=== PATIENT | female | born 1950 | race Caucasian/White ===

== ENCOUNTER 2023-11-25 05:13 | Observation (INO) ==
--- NOTE | 2023-10-31 12:18 | PAT Medication Instructions ---
Medication Instructions Date of Service October 31, 2023 Home Medications acetaminophen 325 mg tablet (Tylenol) 325 mg PO PRN PRN Pain meclizine 25 mg tablet 25 mg PO TID PRN Vertigo psyllium husk 0.52 gram capsule (Metamucil) 0.52 g PO QAM Calcium + D3 1,200 mg PO BID Turmeric Spice 0.5 tbsp PO DAILY Vitamin B12 Chewable 5,000 mcg PO QAM famotidine 40 mg tablet 40 mg PO QAM ibuprofen 200 mg tablet 200 mg PO Q6H PRN Pain lisinopril 2.5 mg tablet 2.5 mg PO QAM ondansetron HCl 4 mg tablet 4 mg PO DAILY PRN Nausea polyethylene glycol 3350 17 gram/dose oral powder (Miralax) 17 g PO QAM rosuvastatin 5 mg tablet 5 mg PO QPM MEDICATION INSTRUCTIONS: ASK your surgeon for instructions ibuprofen 200 mg tablet 200 mg PO Q6H PRN Pain STOP taking 2 weeks before surgery Turmeric Spice 0.5 tbsp PO DAILY DO NOT take the morning of surgery polyethylene glycol 3350 17 gram/dose oral powder (Miralax) 17 g PO QAM lisinopril 2.5 mg tablet 2.5 mg PO QAM psyllium husk 0.52 gram capsule (Metamucil) 0.52 g PO QAM Vitamin B12 Chewable 5,000 mcg PO QAM Calcium + D3 1,200 mg PO BID Take morning of surgery With a small sip of water, OTHERWISE NOTHING TO EAT OR DRINK AFTER MIDNIGHT: acetaminophen 325 mg tablet (Tylenol) 325 mg PO PRN PRN Pain meclizine 25 mg tablet 25 mg PO TID PRN Vertigo ondansetron HCl 4 mg tablet 4 mg PO DAILY PRN Nausea famotidine 40 mg tablet 40 mg PO QAM Take evening before surgery acetaminophen 325 mg tablet (Tylenol) 325 mg PO PRN PRN Pain meclizine 25 mg tablet 25 mg PO TID PRN Vertigo Calcium + D3 1,200 mg PO BID ondansetron HCl 4 mg tablet 4 mg PO DAILY PRN Nausea rosuvastatin 5 mg tablet 5 mg PO QPM Other Notes If you have any questions please call us at [phone] or [phone] or [phone] or [phone]
--- NOTE | 2023-11-07 09:46 | Anesthesiology Consultation ---
Date of Service November 07, 2023 Assessment & Plan (1) Encounter for pre-operative examination: - will request most recent PCP office note, Dr. Katja Gant, since 04/2023 ER visit. - Outpatient joint assessment: Patient is currently scheduled for inpatient pathway. If re-evaluated and patient/surgeon requests outpatient pathway, patient is not candidate for outpatient joint program from anesthesia standpoint. Chart Review Chart Review: Pending: Refer to Additional Notes / Consult section and Patient seen in Pre Admission Testing Teaching & Discussion Pre-Anesthesia Teaching/Discussion Notes: Instructed NPO after midnight before surgery, except medications with 15 cc of water. Medication instructions provided according to the PAT guidelines. History Surgery Operation Date: 11/25/23 10:40 Proposed Procedures p Left Unicompartmental Knee versus - Eliazar Adasm MD s Total Knee Arthroplasty - Eliazar Adams MD Height/Weight Height: 5 ft 3.5 in Weight: 55.2 kg Allergies Allergy/AdvReac Type Severity Reaction Status Date / Time atorvastatin AdvReac Severe Hyperventil Verified 10/26/23 12:45 ation/Mart ng/Anxious prednisone AdvReac Intermediate Insomnia/An Verified 10/26/23 12:45 xious/Mart ng Medications Home Medications Medication Instructions Recorded Confirmed Last Taken acetaminophen 325 mg tablet 325 mg PO PRN PRN Pain 06/11/20 10/26/23 Unknown (Tylenol) meclizine 25 mg tablet 25 mg PO TID PRN Vertigo 06/11/20 10/26/23 Unknown psyllium husk 0.52 gram capsule 0.52 g PO QAM 06/11/20 10/26/23 Unknown (Metamucil) Calcium + D3 1,200 mg PO BID 10/26/23 10/26/23 Unknown Turmeric Spice 0.5 tbsp PO DAILY 10/26/23 10/26/23 Unknown Vitamin B12 Chewable 5,000 mcg PO QAM 10/26/23 10/26/23 Unknown famotidine 40 mg tablet 40 mg PO QAM 10/26/23 10/26/23 Unknown ibuprofen 200 mg tablet 200 mg PO Q6H PRN Pain 10/26/23 10/26/23 Unknown lisinopril 2.5 mg tablet 2.5 mg PO QAM 10/26/23 10/26/23 Unknown ondansetron HCl 4 mg tablet 4 mg PO DAILY PRN Nausea 10/26/23 10/26/23 Unknown polyethylene glycol 3350 17 17 g PO QAM 10/26/23 10/26/23 Unknown gram/dose oral powder (Miralax) rosuvastatin 5 mg tablet 5 mg PO QPM 10/26/23 10/26/23 Unknown Past Medical History Medical History (Updated 11/07/23 @ 10:00 by Elena Jacinto PA-C) Arthritis GERD (gastroesophageal reflux disease) controlled, stable per pt Gout History of anemia History of COVID-19 2021 - no hospitalizations - no residual effects History of diverticulitis "years ago" HTN (hypertension) controlled, stable per pt Hyperlipidemia Hypothyroidism "When I first got surgery I was on medication but they took me off of it" IBS (irritable bowel syndrome) Osteopenia PONV (postoperative nausea and vomiting) Renal insufficiency Thyroid goiter Thyroid nodule Surgically Removed Torn meniscus with fracture - Left - No surgery Vertigo chronic, has meclizine prn Patient denies h/o stroke, seizures, heart attack, heart failure, DM, blood clots/DVTs or blood transfusions. Exercise / Class Metabolic Activity II 4-5 Yardwork/Stairs/Walk up hill (denies chest discomfort or shortness of breath with one flight of stairs) Past Family History Family History Daughter Thyroid disease Adrenal insufficiency Aunt Breast cancer Grandmother (Maternal) Congestive heart failure Grandfather (Maternal) Esophageal cancer Sister Migraines Mother Osteoarthritis Hypertension History of breast biopsy Father Hypertension Alcoholism COPD (chronic obstructive pulmonary disease) Past Surgical History Surgical History History of bilateral tubal ligation in 1982 History of colonoscopy 06/2023 History of dilation and curettage Multiple History of hysterectomy 2009 History of thyroid surgery "removed the right side of thyroid due to a nodule" 04/2012 Hx of cataract surgery Bilateral Hx of colonoscopy Hx of esophagogastroduodenoscopy Past Anesthesia History No Hx of Anesthesia Complications and No Family Hx of Anesthesia Complications History of PONV History of PONV (denies needing scop patch) and Hx of Motion Sickness Social History Smoking Status: Never smoker Do You Dip or Chew Tobacco: No Hx Alcohol Use: Yes Alcohol type: wine alcohol intake frequency: a few times a month Hx Substance Use: No substance use type: does not use Review of Systems Patient denies chest pain, shortness of breath, dyspnea on exertion, snoring, witnessed apneas, fever, chills, cough, wheezing, or palpitations. Physical Exam Vital Signs Vitals BP 106/70 P 75 TEMP 98.0 SP02 94% on RA RESP 18 Physical Patient resting comfortably in chair in no acute distress, alert and oriented, responding appropriately throughout visit Full cervical extension range of motion without pain TMD 3.5 finger breadths Mallampati Score 2 Dentition: full upper denture, denies chipped or loose teeth, caps/crowns, implants or bridges Lungs: normal respiratory effort. Good air movement, clear throughout to auscultation, no adventitious breath sounds Cardiac: regular rate and rhythm, no murmurs noted Carotid arteries: negative bruit bilat Lab Results Anesthesia Preop Results Results Anesthesia Widget: WBC 5.10 K/ul (4.8-10.8) 11/07/23 Hgb 13.6 g/dl (12.0-16.0) 11/07/23 Hct 40.0 % (37.0-47.0) 11/07/23 Plt 269 K/uL (130-400) 11/07/23 Na 141 mmol/L (136-145) 11/07/23 K 4.2 mmol/L (3.5-5.1) 11/07/23 Cl 107 mmol/L (98-107) 11/07/23 CO2 29 mmol/L (21-32) 11/07/23 BUN 16 mg/dl (6-23) 11/07/23 Creat 1.02 mg/dl (0.6-1.2) 11/07/23 Glucose Level 71 mg/dl (70-99(Fasting)) 11/07/23 PT 10.4 Seconds (9.0-12.0) 11/07/23 PTT 27 Seconds (21-31) 11/07/23 INR 1.0 (0.9-1.1) 11/07/23 Blood Type O Positive 11/07/23 Antibody Screen NEGATIVE 11/07/23 Testing Electrocardiogram Date: 04/22/23 Sinus rhythm with 1st degree AV block, rate 87 bpm Incomplete RBBB Chest X-Ray Date: 11/07/23 No acute cardiopulmonary findings. Echocardiogram Date: 05/29/20 EF 60-65% No LV regional wall motion abnormalities No significant valvular pathology Stress Test Date: 07/17/20 Suggesting inducible ischemia in the anterolateral wall at peak exertion METS 10 MPHR 108% Other Testing Head and neck CTA 04/22/23 1. No hemodynamically significant carotid stenosis. 2. Bilateral vertebral arteries are patent along their cervical course without evidence of occlusion or dissection. 1. No large vessel intracranial occlusion. 2. No intracranial aneurysm.
--- NOTE | 2023-11-19 11:17 | History & Physical Report ---
Date of Service November 19, 2023 Assessment & Plan (1) Left knee DJD: 73-year-old female with advanced medial compartment arthritis. She has failed conservative measures. She is ready have her knee fixed. Based on her symptoms and x-rays I think she is a good candidate for a partial knee replacement. Plan: [facility] to take her to the operating do a left partial knee replacement. If we get in there and the disease is too bad we will do a full knee replacement. The risks Mente this procedure explained include but not limited to a DVT PE infection neurological injury vascular bleeding palm pain limb range of motion sepsis dislocation and need for further surgery. The patient understands and desires to proceed. Informed consent was obtained. As far as discharge plan she is planned to be discharged to home with home health. Her is available to assist. Will use aspirin for DVT pr ophylaxis. She will need to hold lisinopril the morning of surgery. (2) Hyperlipidemia: (3) History of thyroid surgery: (4) Bursitis of right hip: History of Present Illness Chief Complaint: . Persistent left medial knee pain and discomfort Primary Care Provider: Katja Gant MD . The patient is a 73-year-old female have been following for the past 2 years for her left medial knee pain discomfort along with some hip bursitis. She been through extensive conservative treatment which would become less successful over time. Scribes mostly all medial knee pain. She had treatment by Dr. Jerry initially at and then by myself. She now like to proceed with surgical treatment/knee arthroplasty. Allergies Allergy/AdvReac Type Severity Reaction Status Date / Time atorvastatin AdvReac Severe Hyperventil Verified 10/26/23 12:45 ation/Mart ng/Anxious prednisone AdvReac Intermediate Insomnia/An Verified 10/26/23 12:45 xious/Mart alegria Home Medications Medication Instructions Recorded Confirmed Type acetaminophen 325 mg tablet 325 mg PO PRN PRN Pain 06/11/20 10/26/23 History (Tylenol) meclizine 25 mg tablet 25 mg PO TID PRN Vertigo 06/11/20 10/26/23 History psyllium husk 0.52 gram capsule 0.52 g PO QAM 06/11/20 10/26/23 History (Metamucil) Calcium + D3 1,200 mg PO BID 10/26/23 10/26/23 History Turmeric Spice 0.5 tbsp PO DAILY 10/26/23 10/26/23 History Vitamin B12 Chewable 5,000 mcg PO QAM 10/26/23 10/26/23 History famotidine 40 mg tablet 40 mg PO QAM 10/26/23 10/26/23 History ibuprofen 200 mg tablet 200 mg PO Q6H PRN Pain 10/26/23 10/26/23 History lisinopril 2.5 mg tablet 2.5 mg PO QAM 10/26/23 10/26/23 History ondansetron HCl 4 mg tablet 4 mg PO DAILY PRN Nausea 10/26/23 10/26/23 History polyethylene glycol 3350 17 17 g PO QAM 10/26/23 10/26/23 History gram/dose oral powder (Miralax) rosuvastatin 5 mg tablet 5 mg PO QPM 10/26/23 10/26/23 History Past Med/Surg History Problem List Encounter for pre-operative examination Bursitis of right hip 02/01/22 Right hip pain Left knee DJD Hypertension Hyperlipidemia Palpitations 06/17/20 Medical History History of diverticulitis "years ago" PONV (postoperative nausea and vomiting) Arthritis IBS (irritable bowel syndrome) History of anemia History of COVID-2021 - no hospitalizations - no residual effects HTN (hypertension) controlled, stable per pt Vertigo chronic, has meclizine prn Torn meniscus with fracture - Left - No surgery Hypothyroidism "When I first got surgery I was on medication but they took me off of it" Gout GERD (gastroesophageal reflux disease) controlled, stable per pt Thyroid nodule Surgically Removed Thyroid goiter Osteopenia Renal insufficiency Hyperlipidemia Surgical History Hx of esophagogastroduodenoscopy Hx of colonoscopy Hx of cataract surgery Bilateral History of thyroid surgery "removed the right side of thyroid due to a nodule" 04/2012 History of hysterectomy 2008 History of colonoscopy 06/2023 History of dilation and curettage Multiple History of bilateral tubal ligation in 1982 Family History Daughter Thyroid disease Adrenal insufficiency Aunt Breast cancer Grandmother (Maternal) Congestive heart failure Grandfather (Maternal) Esophageal cancer Sister Migraines Mother Osteoarthritis Hypertension History of breast biopsy Father Hypertension Alcoholism COPD (chronic obstructive pulmonary disease) Social History Smoking Status: Never smoker Second Hand Exposure: No; Do You Dip or Chew Tobacco: No; Hx Alcohol Use: Yes Alcohol type: wine Alcohol Intake Frequency Comment: Rarely Hx Substance Use: No Preferred Language: Grenadian Communication Ability: Effective Attendant Child Activity Required: No Beliefs That Will Affect Care: None marital status: Current Living Situation: Spouse Current Living Situation Comment: In [place] current occupational status: retired Feels Safe at Home: Yes caffeine: Yes (1 cup of coffee) Dental Care, Regularly: Yes Physical Activity Frequency Comment: Active with grandkids; walks on treadmill in winter time Seatbelt Use: always Sunscreen Use: Yes (Occasionally) Assistive Devices: Denture - Upper and Glasses Review of Systems All systems reviewed & are unremarkable except as noted in HPI & below. Physical Exam . Physical examination reveals a pleasant middle-age female. Looks in good health. Examination of the left knee reveals patient walks independently. Minimal limp. She got slight varus alignment to her knee. Tender over the medial joint line. She had a little bit of bony hypertrophy medially. Range of motion is 0-1 25. No instability. Fracisco's is negative. No pain with hip motion. Constitutional WD/WN, vitals as above Respiratory normal respiratory effort, lungs clear to auscultation Cardiovascular RRR, no murmur, no edema Gastrointestinal (Abdomen) normal bowel sounds, soft, nontender, no hepatosplenomegaly Results & Data Results & Data Laboratory Results . Diagnostic Findings . X-rays of the left knee were reviewed. She has advanced medial compartment arthritis. She got near complete loss of medial joint space. She got osteophytes medially. The lateral compartment is well-preserved and the patellofemoral compartment looks well-preserved as well. PG Care Time/CCT Total # of Minutes Spent Total Time Spent with Patient: Total time spent is greater than 50% in coordination of care (as documented) at patient's floor/unit and/or counseling patient: Coding Level of Care Code None Diagnoses Left knee DJD M17.12 Hyperlipidemia E78.5 History of thyroid surgery Z98.890 Bursitis of right hip M70.71
[2023-11-25] MEDS ORDERED: EPINEPHrine INJ 1 MG/ML AMP ONE (06:17)
[2023-11-25] MEDS ORDERED: ROPIVACAINE 0.5% 5 MG/ML 30 ML VIAL ONE (06:17)
[2023-11-25] MEDS ORDERED: BUPIVACAINE 0.5 % 5 MG/1 ML PF 10ML VIAL ONE (06:17)
[2023-11-25] MEDS ORDERED: LIDOCAINE 2% 2 ML VIAL/AMP(20MG/ML) INFIL ONE (06:19)
[2023-11-25] MEDS ORDERED: MIDAZOLAM HCL 1 MG/ML 2ML VIAL ONE (06:19)
[2023-11-25] MEDS ORDERED: fentaNYL citrate PF 100 MCG/2 ML VIAL ONE (06:19)
[2023-11-25] MEDS ORDERED: PROPOFOL IV EMULSION 10 MG/ML 20 ML VIAL IV ONE (06:19)
[2023-11-25] MEDS: LR 500ML BOLUS, THEN 15ML/HR IV SCH (06:20)
[2023-11-25] MEDS: CeleBREX 200 MG CAP PO SCH (06:21)
[2023-11-25] MEDS: FAMOTIDINE 20 MG TAB PO SCH (06:21)
[2023-11-25] MEDS: LR 60ML/HR IV SCH (06:21)
[2023-11-25] MEDS: METOCLOPRAMIDE HCL 10 MG TABLET PO SCH (06:21)
[2023-11-25] MEDS: ACETAMINOPHEN 500 MG TAB PO STA (06:35)
--- NOTE | 2023-11-25 06:41 | History & Physical Bridge Note ---
Date of Service November 25, 2023 History & Physical Bridge Note I have examined the patient, reviewed the History & Physical and in the interval since the performance of the History & Physical I have noted the following changes of clinical significance: no changes noted
[2023-11-25] MEDS: ceFAZolin 2000MG 2,000 MG/15 ML SYR IV SCH (07:12)
[2023-11-25] MEDS ORDERED: DEXAMETHASONE SOD INJ 4 MG/ML VIAL ONE (07:13)
[2023-11-25] MEDS ORDERED: ePHEDrine sulfate 50 MG/5 ML SYR ONE (07:44)
[2023-11-25] MEDS: ORTHO JOINT ANESTHETIC ONE (07:46)
[2023-11-25] MEDS: TRANEXAMIC ACID 1,000 MG **IV Intra-op IV SCH (08:01)
[2023-11-25] MEDS: ROPIV 0.5% 246mg, Ketorolac 30mg, EPINEPHrine 0.5mg in NSS INFIL SCH (08:12)
[2023-11-25] MEDS ORDERED: ePHEDrine sulfate 50 MG/ML AMP IV PRN (08:50)
[2023-11-25] MEDS ORDERED: FLUMAZENIL 0.1 MG/1 ML 10 ML VIAL IV PRN (08:50)
[2023-11-25] MEDS ORDERED: fentaNYL citrate PF 100 MCG/2 ML VIAL IV PRN (08:50)
[2023-11-25] MEDS ORDERED: ONDANSETRON INJ 2 MG/ML 2 ML VIAL IV PRN ×2 (08:50→12:07)
[2023-11-25] MEDS ORDERED: NALOXONE HCL 0.4 MG/1 ML VIAL/CARP IV PRN ×2 (08:50→12:07)
[2023-11-25] MEDS ORDERED: PROMETHAZINE HCL 6.25 MG in SODIUM CHLORIDE 0.9% 50 ML IV PRN (08:50)
[2023-11-25] MEDS ORDERED: ATROPINE SULFATE 0.1 MG/ML 10ML SYR IV PRN (08:50)
[2023-11-25] MEDS ORDERED: HYDROmorphone INJ 1 MG/ML SYRINGE IV PRN (08:50)
--- NOTE | 2023-11-25 08:52 | Operative Report ---
PG Post Operative Report Pre & Post Diagnosis Operation Date: 11/25/23 07:00 Pre-Op Diagnosis: Left Knee Degenerative Joint Disease Post-Op Diagnosis: Left Knee Degenerative Joint Disease I identified the patient and participated in the time-out.: Yes Procedure Operation Date: 11/25/23 07:00 Actual Procedures p Left Unicompartmental Knee(Left) arthroplasty- Eliazar Adams MD Surgeon Eliazar Adams MD Ink Blender Harpreet Hou PA-C Estimated Blood Loss 20 Findings Consistent with Post-Op Diagnosis Operative findings were advanced left knee medial compartment arthritis. She had [id number] disease in the medial femoral condyle as well as medial tibial plateau. The ACL was intact. The lateral and patellofemoral compartments were quite pristine. Specimens Left knee sent for pathology. Anesthesia Type Spinal MAC Complications none Disposition Accompanied Patient To Recovery: No Indications The patient is 73-year-old female has had a long history of gradual progressive increasing left knee pain discomfort. She been through extensive conservative treatment over the years which became less successful. X-rays revealed isolated medial compartment arthritis. Her symptoms are localized to the medial side of her knee. She elected proceed with left partial knee replacement. Description of Procedure Operative implants consist of: 1. Biomet Hayes small medial femoral component. 2. Biomet Hayes left medial size D tibial tray. 3. 4 mm millimeter mobile-bearing polyethylene insert. The patient was taken the op room, identified, placed on the operative table in the supine position. All conductors were appropriately padded. IV antibiotics tried by anesthesia team. A spinal anesthetic and adductor canal block had been Weida in the holding area. A Harper catheter was placed in sterile fashion. A left thigh turn was then placed to the left lower extremities then prepped and draped in usual sterile fashion. The left leg was elevated and exsanguinated with use of an Esmarch and a turn was placed at 300 mmHg. An anterior approach to the left knee was then performed to longitudinal incision beginning at the superior pole of the patella and extending just medial to the tibial tubercle. Sharp dissection Through subcutaneous tissues. A medial parapatellar arthrotomy incision was made. Some subperiosteal dissection was carried out medially. Great care was taken throughout the procedure to protect the MCL. The fat pad was resected. I then examined the knee. The ACL was intact. The medial and lateral compartments looked quite pristine so we proceed with a partial knee replacement. A small osteophyte in the intercondylar notch was removed. The femur was then sized to a size small. The small spring was placed. The tibial cutting guide was then placed on the anterior face the tibia and attached of the a small spoon. A 4G clamp was used. The tibial tray was pinned in place and the proximal tibial cut was made. We initially made the initial fat and then took the kelsea off and cut a little more as the initial cut did not take too much bone it was too tight even for 3 insert. We then trialed the tibia and the tibia sized to a size B. Attention drawn the femur. The distal femur. The sharp drill for the IM guide was placed. The small femoral template was placed and attached to the IM juani. The holes were drilled for the femoral component. The posterior cutting guide was placed and the posterior cut was made. The 0 spigot we used the Millis distal femur. The medial meniscus was excised. We then trialed the knee and the 4 feeler gauge fit in flexion and the other 1 in extension. We used the 3 spigot milled the distal femur. We then trialed the knee and the 4 insert fit appropriately in flexion extension. Was a little bit snug in flexion but so we elected to use this. We then prepared the femur for the femoral component. The posterior osteophyte cutting guide was placed. The anterior femur is milled. The tibial tray was pinned in on the tibia. The toothbrush blade was used to create the keel for the tibial tray. The trial tray was placed. We trialed the knee 1 more time and the 4 insert fit appropriately. We elected to place these implants. All trial implants were removed. I irrigated the wound extensively. We injected locally with total of 100 cc of Ortho mix. A single batch Palacos G cement was mixed. A left medial size D tibial tray was then cemented in place followed by a small femoral component. The 4 feeler gauge was placed the knee was brought out into about 30 degrees short of full extension till cement hardened. Final cement check was then performed. We then trialed the knee 1 more time and elected to place a 4 insert. 4 insert was placed. I irrigated the wound extensively. The tourniquet was then let down for return time 60 minutes. Hemostasis assured with electrocautery. Extensor Meclomen closed with #1 Vicryl suture in a [id number]-[id number] fashion. The subcutaneous tissues then closed with 2 Dexon suture in buried interrupted fashion skin was closed skin kelly. Leg was then cleaned and dried and a sterile dressing with Xeroform, 4 fours, sterile cast padding, Steve bandage were applied. Patient then transferred to the recovery room in stable condition. Patient tolerated procedure well and no complications. Harpreet Hou, my physician credit assistant, was present for the entire procedure. His assistance was essential and required for appropriate patient positioning, prepping and draping, surgical exposure, performing the technical details of the operation, placement the implants, closure of the wound, and placement of the sterile bandage. I attest to the content of the Intraoperative Record and any orders documented therein. Any exceptions are noted below.
--- NOTE | 2023-11-25 09:02 | XRay Report ---
XR knee LT 1 or 2V routine HISTORY: 73 years-old Female Surgical Post Op hemiarthroplasty of the left knee COMPARISON: Radiographs 10/06/2023 TECHNIQUE: 2 views of the left knee FINDINGS: Medial compartment hemiarthroplasty. Anterior midline skin kelly with expected postoperative soft t issue swelling and deep tissue air. Infrapatellar calcifications. Mild lateral and patellofemoral com partment osteoarthritis redemonstrated. IMPRESSION: Satisfactory alignment of the knee status post medial compartment hemiarthroplasty. ACT 112: Negative or not required by law. The above report was generated using voice recognition software. It may contain grammatical, syntax o r spelling errors. Electronically signed by: aRmon Dupont M.D. 11/25/2023 9:00 AM
--- NOTE | 2023-11-25 10:11 | Anesthesiology Progress Note ---
Date of Service November 25, 2023 Anesthesia Post Procedure Vital Signs Vital Signs: Temp Pulse Pulse Resp BP Pulse Ox O2 Del Method 11/25/23 10:00 36.4 C L 73 15 111/68 96 Room Air 11/25/23 09:45 75 17 113/68 96 Room Air 11/25/23 09:35 76 16 111/68 95 Room Air 11/25/23 09:25 86 20 103/65 96 Room Air 11/25/23 09:15 79 16 110/66 97 Room Air 11/25/23 09:05 79 16 116/68 99 Nasal Cannula 11/25/23 08:55 82 16 105/58 L 98 Nasal Cannula 11/25/23 08:49 36.1 C L 88 16 116/67 98 Nasal Cannula 11/25/23 05:52 36.5 C 75 20 128/84 98 Room Air O2 Flow Rate 11/25/23 10:00 11/25/23 09:45 11/25/23 09:35 11/25/23 09:25 11/25/23 09:15 11/25/23 09:05 2 11/25/23 08:55 3 11/25/23 08:49 3 11/25/23 05:52 Transfer of Care Handoff Completed per policy Notes Mental Status: alert / awake / arousable Patient Amnestic to Procedure: Yes Nausea / Vomiting: adequately controlled Pain: adequately controlled Airway Patency, RR, SpO2: stable & adequate BP & HR: stable & adequate Hydration State: stable & adequate Neuraxial Anesthesia: was administered and sensory block is resolving Anesthetic Complications: no major complications apparent
[2023-11-25] MEDS: ACETAMINOPHEN 500 MG TAB PO SCH ×2 (11:48→13:12)
[2023-11-25] MEDS ORDERED: ALUMINUM/MAGNESIUM SUSP 30 ML UDC PO PRN (12:07)
[2023-11-25] MEDS ORDERED: bisacodyL 10 MG SUPP PR PRN (12:07)
[2023-11-25] MEDS ORDERED: TURMERIC PO SCH (12:07)
[2023-11-25] MEDS ORDERED: HYDROmorphone INJ 0.5 MG/0.5 ML SYR IV PRN (12:07)
[2023-11-25] MEDS ORDERED: SENNA 8.6 MG TAB PO SCH (12:07)
[2023-11-25] MEDS ORDERED: MAGNESIUM HYDROXIDE SUSP 30 ML UDC PO PRN (12:07)
[2023-11-25] MEDS ORDERED: MECLIZINE HCL 25 MG TAB PO PRN (12:07)
[2023-11-25] MEDS ORDERED: METOCLOPRAMIDE HCL INJ 5 MG/ML 2 ML VIAL IV PRN (12:07)
[2023-11-25] MEDS ORDERED: VITAMIN B12 5000 MCG PO SCH (12:07)
[2023-11-25] MEDS: POLYETHYLENE (MIRALAX) 17 GM PACK PO SCH (12:53)
[2023-11-25] MEDS: DOCUSATE SODIUM 100 MG CAP PO SCH (13:12)
[2023-11-25] MEDS: SODIUM CHLORIDE 0.9% 1,000 ML IV SCH (13:12)
[2023-11-25] MEDS: KETOROLAC TROMETHAMINE 15 MG/ML VIAL IV SCH (13:12)
[2023-11-25] MEDS: ASPIRIN 81 MG ECTAB PO SCH (14:01)
[2023-11-25] MEDS: FAMOTIDINE 40 MG TABLET PO SCH (14:02)
[2023-11-25] MEDS: lisinopril 2.5 MG TAB PO SCH (14:02)
[2023-11-25] MEDS: MULTIVITAMIN TAB PO SCH (14:02)
[2023-11-25] MEDS: ceFAZolin 1000MG 1,000 MG/7.5 ML SYR IV SCH (17:11)
[2023-11-25] MEDS: ASCORBIC ACID 500 MG TAB PO SCH (17:11)
[2023-11-25] MEDS: ROSUVASTATIN CALCIUM 5 MG TAB PO SCH (20:23)
[2023-11-25] MEDS: oxyCODONE HCL IR 5 MG TAB (IMMEDIATE RELEASE) PO PRN (20:23)
[2023-11-25] MEDS: CALCIUM 600MG + VIT D 400 IU TAB PO SCH (20:23)
[2023-11-25] MEDS: SENNA 8.6 MG TAB PO SCH (20:23)
[2023-11-25 21:34] VITALS: RESP 16
[2023-11-26 03:11] VITALS: TEMP 98.1
[2023-11-26 06:26] LABS: Hematocrit (blood only) 32.2 % (37.0-47.0); Hemoglobin 11.4 g/dl (12.0-16.0); Mean Corpuscular Hemoglobin 31.2 pg (25.0-34.0); Mean Corpuscular Hgb Conc 35.4 g/dL (32.0-36.0); Mean Corpuscular Volume 88.2 fL (80.0-100.0); Mean Platelet Volume 10.7 fL (9.4-12.4); Platelet Count 200 K/uL (130-400); RDW Coefficient of Variation 13.1 % (11.5-14.5); RDW Standard Deviation 42.6 fL (36.4-46.3); Red Blood Count 3.65 M/uL (4.20-5.40); White Blood Count 10.49 K/ul (4.8-10.8)
[2023-11-26 06:41] LABS: Calcium 8.8 mg/dl (8.6-10.3); Creatinine Clr Calc Pharmacy 47.4 ml/min; Potassium 3.9 mmol/L (3.5-5.1)
--- NOTE | 2023-11-26 06:52 | Orthopedic Progress Note ---
Date of Service November 26, 2023 Assessment & Plan (1) Status post left partial knee replacement: Plan: 73-year-old female postop day 1 from a left partial knee replacement doing well. Pains controlled. She is neurologically intact. Plan: 1. DVT prophylaxis including thigh-high teds, SCDs, aspirin twice a day. 2. PT/OT. Weight-bear as tolerated. Left total knee protocol. 3. Pain control doing okay with the current pain regimen. 4. Disposition plan to discharge to home with some home health today if does okay in therapy. Admission and Anticipated Discharge Date Admission Date: November 25, 2023 Subjective 73-year-old female postop day 1 from a left partial knee replacement. She is doing pretty well. Had a reasonable night. Pains controlled. No chest pain or shortness of breath. Not feeling dizzy or lightheaded. Physical Exam Physical Exam: Physical examination is a pleasant middle-age female. As she is lying in bed this morning looks pretty good. She is awake alert and oriented. Examination left knee reveals the dressing is clean dry and intact. Leg is well aligned. She can do a good straight leg raise. She can dorsiflex and plantarflex her foot appropriately. She is neuro vastly intact. Results & Data Vital Signs (Past 12 Hours) Vital Signs Temp Pulse Resp BP Pulse Ox O2 Del Method 11/26/23 03:10 36.7 C 81 16 112/65 95 Room Air 11/25/23 21:33 36.8 C 86 16 117/70 97 Room Air Laboratory Results Hemoglobin is 11.4. Hematocrit is 32.2. Electrolytes are stable.
[2023-11-26 07:40] VITALS: BP 128/70; PULSE 76; O2SAT 97
[2023-11-26] MEDS: dexAMETHasone 10 MG in SYRINGE 0 ML IV SCH (07:41)
[2023-11-26] MEDS: PSYLLIUM or GUAR GUM FIBER 4GM PACKET PO SCH (07:41)
--- NOTE | 2023-12-01 07:34 | Discharge Summary ---
Date of Service December 01, 2023 Discharge Data Procedures Performed Operation Date: 11/25/23 07:00 Actual Procedures p Left Unicompartmental Knee(Left) - Eliazar Adams MD Hospital Course (1) Status post left partial knee replacement: This is a 73 year old patient admitted on 11/25/23 and underwent partial knee replacement. She tolerated the procedure well and there were no complications. T ransferred to the PACU post op and later to the orthopedic floor for further care. She was given ancef for antibiotic prophylaxis. She was also given CHAYO stockings, SCDs, and aspirin for DVT prophylaxis. Hemoglobin, hematocrit, and vital signs were monitored during her hospital stay and remained stable. Did not require any blood transfusions. There were no complications during her hospital stay. By post op day #1 the patient was tolerating a regular diet, pain was reasonably controlled with oral pain medicine, and she was participating in physical therapy. On post op day #1 the patient was discharged home and set up with home health care. She was given printed discharge instructions including prescriptions for extra strength tylenol, aspirin, cefadroxil, ketorolac, zofran, oxycodone, and senokot. Continue physical therapy, weight bearing as tolerated. Continue CHAYO stockings. Follow up approximately 2 weeks post op or sooner if there are problems or concerns. Coding Level of Care Code None Diagnoses Status post left partial knee replacement Z96.652
== END 2023-11-26 13:30 | disposition home health service (06) ==
LOC: ASU 05:13 → PACUINP 05:13 → 3E 12:04